=== PATIENT | male | born 1965 | race Caucasian/White ===

== ENCOUNTER 2016-12-19 23:00 | Emergency (ER) | payer SELFPAY ==
[~2016-12-19 23:00] MED LIST: ACETAMINOPHEN325 MG PO; ASPIR 8181 MG PO; FLECAINIDE ACE100 MG PO; LOVASTATIN20 MG PO; PLAVIX75 MG PO; PRINIVIL10 MG PO; PROTONIX40 MG PO; TENORMIN50 MG PO
== END 2016-12-20 01:40 | disposition home or self-care (01) ==
LOC: ER 23:00
DX: R07.2 Precordial pain (principal); R94.6 Abnormal results of thyroid function studies; I10 Essential (primary) hypertension; K21.9 Gastro-esophageal reflux disease without esophagitis; I48.91 Unspecified atrial fibrillation; Z88.6 Allergy status to analgesic agent; Z79.899 Other long term (current) drug therapy
CPT/HCPCS: 36415